=== PATIENT | male | born 2000 | race Caucasian/White ===

== ENCOUNTER 2018-10-14 21:45 | Emergency (ER) | payer OTHER ==
[~2018-10-14] VITALS: Ht 180.3 cm; Wt 97.7 kg
[~2018-10-14 21:45] MED LIST: AMOXICILLIN500 MG PO; MEDDOSEPAK OR; NO HOME MEDS
[2018-10-14 23:59] VITALS: BP 125/58
== END 2018-10-15 00:05 | disposition home or self-care (01) | DRG 552 ==
LOC: ED 21:45
DX: S16.1XXA Strain of muscle, fascia and tendon at neck level, initial encounter (principal); V59.40XA Driver of pick-up truck or van injured in collision with unspecified motor vehicles in traffic accident, initial encounter